=== PATIENT | female | born 1985 | race African-American/Black ===

== ENCOUNTER 2020-08-21 11:44 | Emergency (ER) | payer OTHER ==
[2020-08-21 11:53] VITALS: TEMP 97.7; BMI 18.7
[2020-08-21] MEDS ORDERED: SODIUM CHLORIDE 1,000 ML IV STA (12:54)
[2020-08-21 13:44] LABS: BASO % 0.7 % (0-2.0); EOS % 0.3 % (0-4.5); HEMATOCRIT 34.5 % (32.4-45.2); HEMOGLOBIN 11.8 GM/dL (10.7-15.3); LYMPH % 26.2 % (8-40); MCH 32.4 pg (25.7-33.7); MCHC 34.2 g/dl (32.0-36.0); MEAN CELL VOLUME 94.9 fl (80-96); MEAN PLT VOLUME 7.6 fl (7.5-11.1); MONO % 6.4 % (3.8-10.2); NEUT % 66.4 % (42.8-82.8); PH,URINE 7.5 (5.0-8.0); PLATELET COUNT 343 K/MM3 (134-434); RBC 3.63 M/mm3 (3.60-5.2); URINE APPEARANCE CLEAR; URINE BILIRUBIN NEGATIVE (NEGATIVE); URINE COLOR YELLOW; URINE GLUCOSE (UA) NEGATIVE (NEGATIVE); URINE KETONE NEGATIVE (NEGATIVE); URINE LEUK ESTERASE NEGATIVE (NEGATIVE); URINE NITRITE NEGATIVE (NEGATIVE); URINE PROTEIN NEGATIVE (NEGATIVE); URINE UROBILINOGEN 0.2 mg/dL (0.2-1.0); WHITE BLOOD COUNT 9.2 K/mm3 (4.0-10.0)
[2020-08-21 13:53] LABS: POTASSIUM 3.6 mmol/L (3.5-5.1)
[2020-08-21 13:55] LABS: CALCIUM 9.6 mg/dL (8.5-10.1)
[2020-08-21 13:56] LABS: ALBUMIN 3.8 g/dl (3.4-5.0); BLOOD UREA NITROGEN 12.6 mg/dL (7-18); MAGNESIUM 2.2 mg/dL (1.8-2.4)
[2020-08-21 13:59] LABS: CREATININE 0.6 mg/dL (0.55-1.3)
[2020-08-21 14:00] LABS: BILIRUBIN,TOTAL 0.4 mg/dL (0.2-1)
[2020-08-21 14:01] LABS: TOT PROT 7.4 g/dl (6.4-8.2)
[2020-08-21 15:04] VITALS: BP 108/69; PULSE 90
== END 2020-08-21 15:08 | disposition home or self-care (01) ==
LOC: JER 11:44
PROC: 3E0337Z Introduction of Electrolytic and Water Balance Substance into Peripheral Vein, Percutaneous Approach (ICD-10-PCS; principal; 2020-08-21)
DX: G25.0 Essential tremor (principal)
CPT/HCPCS: 36415; 70450-TC; 80053; 81003; 83735; 84100; 84703; 85025; 87086; 99284-25